=== PATIENT | male | born 1980 ===

== ENCOUNTER 2019-01-21 07:22 | Outpatient (CLI) | payer BC ==
[2019-01-21] MEDS ORDERED: Iopamidol 370 76% 100 ML VIAL ONE (09:24)
--- NOTE | 2019-01-24 11:29 | CT ---
CT CORONARY ARTERY CALCIUM SCORING WITHOUT CONTRAST CORONARY CTA WITH IV CONTRAST AND 3D POSTPROCESSING: HISTORY: 38-year-old male with chest pain. Family history of heart disease. Patient has hypercholesterolemia. IV CONTRAST: 95 mL Isovue 370. FINDINGS: CT CORONARY CALCIUM SCORING: LMA = 0 LAD = 0 LCA = 0 RCA = 0 PDA = 0 Total calcium score is 0 using the KI-130 method. The coronary arterial opacification is excellent with a right-sided dominance. No significant narrowi ng is seen in the left main, LAD, and diagonals, LCA and obtuse marginal, RCA, and posterior descendi ng arteries. 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 Quantitative left ventricular function measurements are as follows: Ejection fraction: 67% End-diastolic volume: 189 mL End-systolic volume: 63 mL Stroke volume: 126 mL/minute Cardiac output: 6.8 liters/minute Left ventricular wall motion is normal. There is good opacification of the thoracic aorta without evidence of aneurysm or dissection. Visuali zed pulmonary arteries are well opacified without filling defects to suggest embolic disease. The vis ualized lung bronson are clear. The bony structures are unremarkable. No pleural or pericardial effusi ons are seen. IMPRESSION: 1. Total coronary calcium score is 0. 2. No evidence of coronary artery disease. 3. LVEF is 67%. 4. 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 POS: KRISH
== END 2019-01-21 07:23 | disposition home or self-care (01) ==
LOC: BICCT 07:22
PROVIDERS: ATTEND Internal Medicine Cardiovascular Disease
DX: R07.89 Other chest pain (principal)
CPT/HCPCS: 75574; Q9967